=== PATIENT | female | born 1985 | race Caucasian/White ===

== ENCOUNTER → 2020-03-19 08:36 | Outpatient (BNVA) | payer MEDICAID, SELFPAY | PROVIDERS: Family Provider Obstetrics & Gynecology; Visit Provider Obstetrics & Gynecology | DX: Z32.01 Encounter for pregnancy test, result positive (principal) | CPT/HCPCS: 81025 ==

== ENCOUNTER → 2020-03-22 10:35 | Outpatient (BNVA) | payer MEDICAID, SELFPAY | PROVIDERS: Family Provider Obstetrics & Gynecology; Visit Provider Nurse Practitioner Women's Health | DX: O09.32 Supervision of pregnancy with insufficient antenatal care, second trimester (principal); O09.899 Supervision of other high risk pregnancies, unspecified trimester | CPT/HCPCS: 81000 ==

== ENCOUNTER → 2020-04-05 14:54 | Outpatient (BNVA) | payer MEDICAID, SELFPAY | PROVIDERS: Family Provider Obstetrics & Gynecology; Visit Provider Obstetrics & Gynecology | DX: O09.899 Supervision of other high risk pregnancies, unspecified trimester (principal) | CPT/HCPCS: 80053; 80307; 81000; 82950; 85027; 86592; 86762; 86803; 86850; 86900; 87340; 87491; 87591; 87806 ==

== ENCOUNTER → 2020-05-08 14:46 | Outpatient (BNVA) | payer MEDICAID, SELFPAY | PROVIDERS: Family Provider Obstetrics & Gynecology; Visit Provider Obstetrics & Gynecology | DX: O32.1XX0 Maternal care for breech presentation, not applicable or unspecified (principal); Z3A.23 23 weeks gestation of pregnancy | CPT/HCPCS: 76805 ==

== ENCOUNTER → 2020-05-25 09:34 | Outpatient (BNVA) | payer MEDICAID, SELFPAY | PROVIDERS: Family Provider Obstetrics & Gynecology; Visit Provider Obstetrics & Gynecology | DX: Z34.90 Encounter for supervision of normal pregnancy, unspecified, unspecified trimester (principal) | CPT/HCPCS: 81000; 86780 ==

== ENCOUNTER → 2020-07-09 10:47 | Outpatient (BNVA) | payer MEDICAID, SELFPAY | PROVIDERS: Family Provider Obstetrics & Gynecology; Visit Provider Obstetrics & Gynecology | DX: O09.892 Supervision of other high risk pregnancies, second trimester (principal) | CPT/HCPCS: 80053; 81000; 82950; 85027 ==

== ENCOUNTER → 2020-07-16 10:45 | Outpatient (BNVA) | payer MEDICAID, SELFPAY | PROVIDERS: Family Provider Obstetrics & Gynecology; Visit Provider Obstetrics & Gynecology | DX: Z34.90 Encounter for supervision of normal pregnancy, unspecified, unspecified trimester (principal) | CPT/HCPCS: 81000 ==

== ENCOUNTER 2020-07-26 12:00 | Outpatient (CLI) | payer MEDICAID, SELFPAY ==
[2020-07-26 12:00] VITALS: BMI 32.8
[2020-07-26 12:17] VITALS: BP 154/86; PULSE 93
[2020-07-26 12:21] VITALS: RESP 17; TEMP 36.9
[2020-07-26 12:37] VITALS: BP 157/87; PULSE 88
[2020-07-26 12:57] VITALS: BP 149/94; PULSE 88
== END 2020-07-26 13:00 | disposition home or self-care (01) ==
LOC: OPOB 12:11 → OBGYN 12:11
PROVIDERS: Family Provider Obstetrics & Gynecology; Visit Provider Obstetrics & Gynecology
DX: O24.419 Gestational diabetes mellitus in pregnancy, unspecified control (principal); Z3A.00 Weeks of gestation of pregnancy not specified
CPT/HCPCS: 59025; 81000; 99211

== ENCOUNTER 2020-07-30 16:46 | Outpatient (CLI) | payer MEDICAID, SELFPAY ==
[2020-07-30] VITALS (19 sets, daily range): BP systolic 132–167; BP diastolic 76–97; PULSE 70–91; RESP 16–18; TEMP 36.6–36.7; BMI 33.1
[2020-07-30 17:50] LABS: Basophils % 0.4 %; Eosinophils # 0.2 10^3/uL (0.0-0.8); Eosinophils % 2.2 %; Hematocrit 29.1 % (37.0-47.0); Hemoglobin 8.7 g/dL (11.5-15.3); Lymphocytes # 2.6 10^3/uL (0.8-4.8); Lymphocytes % 25.4 %; Mean Corpuscular HGB Conc 29.9 g/dL (30.0-36.0); Mean Corpuscular Hemoglobin 24.2 pg (28.0-34.0); Mean Corpuscular Volume 80.8 fL (81-99); Mean Platelet Volume 12.2 fL (7.4-10.4); Monocytes # 0.5 10^3/uL (0.2-0.9); Neutrophils # 6.87 10^3/uL (1.8-7.7); Neutrophils % 66.7 %; Nucleated Red Blood Cells % 0 %; Platelet Count 323 10^3/cmm (130-400); Red Cell Distribution Width 15.7 % (12.1-15.1); White Blood Count 10.3 10^3/uL (4.0-10.0)
[2020-07-30 17:54] LABS: Add Urine Microscopic? YES; Bilirubin Urine Neg (Negative); Blood Urine 2+ (Negative); Glucose Urine UA 1+ (Normal); Ketones Urine Negative (Negative); Leukocyte Esterase Urine Negative (Negative); Nitrate Urine Negative (Negative); Protein Urine Neg (Negative); Specific Gravity, Urine 1.025 (1.005-1.030); Urine Appearance SL Hazy (CLEAR); Urine Color Yellow (Yellow); Urobilinogen Urine Norm (Negative); pH Urine 6 (5-7)
[2020-07-30 18:16] LABS: Add Urine Culture? Yes; Bacteria Urine TRACE /hpf; Mucus Urine TRACE /hpf; WBC Urine 0-4 /hpf (0-5)
[2020-07-30 18:32] LABS: Urine Creatinine 187 mg/dL (28-217); Urine Protein Random 20 mg/dL
[2020-07-30 18:41] LABS: UPRO/UCREAT Ratio 0.11 mg/mg CR
[2020-07-30 18:42] LABS: Alanine Aminotransferase 10 U/L (0-33); Albumin Level 3.4 g/dL (3.5-5.2); Alkaline Phosphatase 129 IU/L (35-105); Anion Gap 14.7 (5-19); Aspartate Amino Transferase 14 U/L (0-32); Blood Urea Nitrogen 7 mg/dL (6-20); Calcium 8.7 mg/dL (8.5-10.5); Carbon Dioxide 21 mmol/L (22-29); Chloride 103 mmol/L (98-107); Glomerular Filtration Rate 140.4 mL/min (90-130); Glucose 116 mg/dL (65-115); Osmolality Calculated 279 mOsm/kg (285-295); Potassium 3.7 mmol/L (3.5-5.1); Sodium 135 mmol/L (136-145); Total Bilirubin 0.2 mg/dL (0.15-1.2); Total Protein 6.4 g/dL (6.6-8.7); Uric Acid 3.8 mg/dL (2.4-5.7)
--- NOTE | 2020-08-02 18:20 | PM.ACPR ---
NST (Non-Stress Test) NST : 6 Para: 3,023 Due date: 09/16/20 Gestational age (weeks): 33 Indications: Insulin requiring gestational diabetes in third trimester at 33-1/7 weeks gestation. Test: NST Time: 16:56 Length of test in Minutes: 40 Contractions: Irregular Fetus Fetus 1: Baseline FHR BMP:: 130 Variability: Moderate Accelerations: Present Decelerations: Variable (one) Reacticity: Reactive Interpretation/Plan Interpretation by: Saji Miller Comments: Reactive NST with irregular contractions. Time Out Is a Time Out required?: No
== END 2020-07-30 20:56 | disposition home or self-care (01) ==
LOC: OPOB 16:52 → OBGYN 20:34
PROVIDERS: Obstetrics & Gynecology; Family Provider Obstetrics & Gynecology; Visit Provider Obstetrics & Gynecology
DX: O24.419 Gestational diabetes mellitus in pregnancy, unspecified control (principal); Z3A.00 Weeks of gestation of pregnancy not specified
CPT/HCPCS: 12345; 36415; 59025; 80053; 81000; 81001; 82570; 84156; 84550; 85025; 99211

== ENCOUNTER 2020-07-31 18:15 | Outpatient (CLI) | payer MEDICAID, SELFPAY ==
[2020-07-31] VITALS (8 sets, daily range): BP systolic 0–166; BP diastolic 0–104; PULSE 80–87; RESP 16–18; TEMP 36.8–36.9; BMI 33.1
[2020-07-31 18:54] LABS: Basophils % 0.4 %; Eosinophils # 0.2 10^3/uL (0.0-0.8); Eosinophils % 1.9 %; Hemoglobin 8.6 g/dL (11.5-15.3); Lymphocytes # 2.8 10^3/uL (0.8-4.8); Lymphocytes % 25.8 %; Mean Corpuscular HGB Conc 29.7 g/dL (30.0-36.0); Mean Corpuscular Hemoglobin 23.6 pg (28.0-34.0); Mean Corpuscular Volume 79.7 fL (81-99); Mean Platelet Volume 12.1 fL (7.4-10.4); Monocytes # 0.7 10^3/uL (0.2-0.9); Monocytes % 6.4 %; Neutrophils % 65.1 %; Nucleated Red Blood Cells % 0 %; Platelet Count 334 10^3/cmm (130-400); Red Blood Count 3.64 10^6/uL (4.1-5.3); Red Cell Distribution Width 15.7 % (12.1-15.1); White Blood Count 10.9 10^3/uL (4.0-10.0)
--- NOTE | 2020-07-31 18:57 | PC.NURSE ---
PATIENT ARRIVED BY AMBULANCE, HAD IV ALREADY IN LEFT FOREARM, #18. LABS WERE DRAWN OFF IV SITE AT 1845. 10MLS DRAWN OFF SITE PRIOR TO LABS BEING DRAW.
[2020-07-31 19:23] LABS: Alanine Aminotransferase 9 U/L (0-33); Albumin Level 3.5 g/dL (3.5-5.2); Alkaline Phosphatase 132 IU/L (35-105); Anion Gap 12.8 (5-19); Aspartate Amino Transferase 13 U/L (0-32); Blood Urea Nitrogen 6 mg/dL (6-20); Calcium 8.7 mg/dL (8.5-10.5); Carbon Dioxide 20 mmol/L (22-29); Chloride 106 mmol/L (98-107); Glomerular Filtration Rate 140.4 mL/min (90-130); Glucose 93 mg/dL (65-115); Osmolality Calculated 277 mOsm/kg (285-295); Potassium 3.8 mmol/L (3.5-5.1); Sodium 135 mmol/L (136-145); Total Bilirubin 0.3 mg/dL (0.15-1.2); Total Protein 6.5 g/dL (6.6-8.7)
[2020-07-31] MEDS: labetalol 200 mg Tablet 100 MG PO (19:50)
== END 2020-07-31 20:10 | disposition home or self-care (01) ==
LOC: OPOB 18:20 → OBGYN 18:20
PROVIDERS: Family Provider Obstetrics & Gynecology; Visit Provider Obstetrics & Gynecology
DX: O26.899 Other specified pregnancy related conditions, unspecified trimester (principal); Z3A.00 Weeks of gestation of pregnancy not specified; R10.9 Unspecified abdominal pain
CPT/HCPCS: 36415; 59025; 80053; 85025; 99211

== ENCOUNTER → 2020-08-02 12:58 | Outpatient (BNVA) | payer MEDICAID, SELFPAY | PROVIDERS: Family Provider Obstetrics & Gynecology; Visit Provider Obstetrics & Gynecology | DX: Z34.90 Encounter for supervision of normal pregnancy, unspecified, unspecified trimester (principal) | CPT/HCPCS: 81000 ==

== ENCOUNTER → 2020-08-06 11:04 | Outpatient (BNVA) | payer MEDICAID, SELFPAY | PROVIDERS: Family Provider Obstetrics & Gynecology; Visit Provider Obstetrics & Gynecology | DX: Z11.59 Encounter for screening for other viral diseases (principal); Z20.828 Contact with and (suspected) exposure to other viral communicable diseases | CPT/HCPCS: 87635 ==

== ENCOUNTER 2020-08-07 15:45 | Outpatient (CLI) | payer MEDICAID, SELFPAY ==
[2020-08-07 15:45] VITALS: BMI 33.3
[2020-08-07 16:00] VITALS: BP 144/83; PULSE 91; RESP 18; TEMP 37.1
[2020-08-07] MEDS: betamethasone susp 6 mg/mL 5 mL 12 MG IM (16:27)
--- NOTE | 2020-08-07 16:29 | PM.ACPR ---
NST (Non-Stress Test) NST : 6 Para: 3,023 Due date: 09/16/20 Gestational age (weeks): 34 Indications: Insulin controlled gestational diabetes in third trimester Gestational hypertension in third trimester Test: NST Time: 15:59 Length of test in Minutes: 26 Contractions: Occasional Fetus Fetus 1: Baseline FHR BMP:: 130 Variability: Moderate Accelerations: Present Decelerations: None Reacticity: Reactive Interpretation/Plan Interpretation by: Saji Miller Comments: Reactive NST. Also had biophysical profile with a total score of 10 out of 10. Time Out Is a Time Out required?: No
== END 2020-08-07 16:35 | disposition home or self-care (01) ==
LOC: OPOB 15:54 → OBGYN 15:55
PROVIDERS: Family Provider Obstetrics & Gynecology; Visit Provider Obstetrics & Gynecology
DX: O24.414 Gestational diabetes mellitus in pregnancy, insulin controlled (principal); Z3A.34 34 weeks gestation of pregnancy
CPT/HCPCS: 12345; 59025; 81000; 87081; 96372; J0702

== ENCOUNTER 2020-08-08 16:17 | Outpatient (CLI) | payer MEDICAID, SELFPAY ==
[2020-08-08 16:22] VITALS: BMI 34.1
[2020-08-08] MEDS: betamethasone susp 6 mg/mL 5 mL 12 MG IM (16:36)
== END 2020-08-08 16:40 | disposition home or self-care (01) ==
PROVIDERS: Family Provider Obstetrics & Gynecology; Visit Provider Obstetrics & Gynecology
DX: O26.90 Pregnancy related conditions, unspecified, unspecified trimester (principal)
CPT/HCPCS: 96372; J0702

== ENCOUNTER 2020-08-10 17:52 | Inpatient (IN) | payer MEDICAID, SELFPAY ==
[2020-08-10] VITALS (25 sets, daily range): BP systolic 0–176; BP diastolic 0–94; PULSE 80–112; RESP 18–20; TEMP 36.8; BMI 33.4
--- NOTE | 2020-08-10 18:45 | PC.NURSE ---
Bedside ultrasound performed and cephalic presentation verified with Carmella Rodriguez RN
[2020-08-10 18:52] LABS: Basophils # 0.1 10^3/uL (0.0-0.1); Basophils % 0.4 %; Eosinophils # 0.2 10^3/uL (0.0-0.8); Eosinophils % 0.9 %; Hematocrit 31.7 % (37.0-47.0); Hemoglobin 9.3 g/dL (11.5-15.3); Lymphocytes # 3.4 10^3/uL (0.8-4.8); Lymphocytes % 19.1 %; Mean Corpuscular HGB Conc 29.3 g/dL (30.0-36.0); Mean Corpuscular Hemoglobin 24.3 pg (28.0-34.0); Monocytes % 5.5 %; Neutrophils # 12.67 10^3/uL (1.8-7.7); Neutrophils % 71.9 %; Nucleated Red Blood Cells # 0.1 /100WBC; Nucleated Red Blood Cells % 0.4 %; Platelet Count 320 10^3/cmm (130-400); Red Blood Count 3.82 10^6/uL (4.1-5.3); Red Cell Distribution Width 20.9 % (12.1-15.1); White Blood Count 17.6 10^3/uL (4.0-10.0)
[2020-08-10 19:00] LABS: Bilirubin Urine 1+ (Negative); Blood Urine Neg (Negative); Glucose Urine UA Norm (Normal); Ketones Urine 1+ (Negative); Nitrate Urine Negative (Negative); Protein Urine Trace (Negative); Urine Appearance SL Hazy (CLEAR); Urine Color Yellow (Yellow); pH Urine 5 (5-7)
[2020-08-10 19:01] LABS: Add Urine Microscopic? YES; Leukocyte Esterase Urine 2+ (Negative); Urobilinogen Urine Norm (Negative)
[2020-08-10] MEDS: lactated ringers 1,000 ML 999 ML IV (19:04)
[2020-08-10 19:06] LABS: Bacteria Urine 3+ /hpf; RBC Urine 0-4 /hpf (0-2)
[2020-08-10 19:10] LABS: Alanine Aminotransferase 13 U/L (0-33); Albumin Level 3.8 g/dL (3.5-5.2); Alkaline Phosphatase 137 IU/L (35-105); Anion Gap 16.5 (5-19); Aspartate Amino Transferase 21 U/L (0-32); Blood Urea Nitrogen 13 mg/dL (6-20); Calcium 9.1 mg/dL (8.5-10.5); Carbon Dioxide 20 mmol/L (22-29); Chloride 104 mmol/L (98-107); Globulin 2.7 g/dL (1.3-4.6); Glomerular Filtration Rate 181.6 mL/min (90-130); Glucose 82 mg/dL (65-115); Osmolality Calculated 283 mOsm/kg (285-295); Potassium 3.5 mmol/L (3.5-5.1); Sodium 137 mmol/L (136-145); Total Bilirubin 0.3 mg/dL (0.15-1.2); Total Protein 6.5 g/dL (6.6-8.7); Uric Acid 4.5 mg/dL (2.4-5.7)
--- NOTE | 2020-08-10 19:10 | PC.NURSE ---
Dr. Miller at nurses station reviewing strip
[2020-08-10 19:11] LABS: Add Urine Culture? Yes
--- NOTE | 2020-08-10 19:15 | PC.NURSE ---
Dr. Miller at bedside
[2020-08-10 19:27] LABS: Urine Creatinine 144 mg/dL (28-217)
[2020-08-10 19:28] LABS: UPRO/UCREAT Ratio 0.39 mg/mg CR; Urine Protein Random 56 mg/dL
--- NOTE | 2020-08-10 19:30 | PC.NURSE ---
Dr. Miller at bedside
--- NOTE | 2020-08-10 19:38 | PC.NURSE ---
Dr. Miller at bedside
[2020-08-10 19:40] LABS: Glucose Point of Care 84 mg/dL (70-110)
[2020-08-10] MEDS: ketorolac 30 mg/mL INJ IVP (19:59)
--- NOTE | 2020-08-10 20:14 | PM.DELIVERY ---
Delivery Note: Date of delivery: August 10, 2020 Pre-delivery diagnoses: 1. labor at 34-5/7 weeks gestation 2. Severe gestational hypertension in third trimester 3. Insulin controlled gestational diabetes in third trimester 4. macrosomia in third trimester 5. Polyhydramnios in third trimester 6. Anemia in in third trimester 7. Gastroesophageal reflux complicating in third trimester 8. Depression complicating in third trimester 9. Advanced maternal age complicating in third trimester Post-delivery diagnoses: 1. labor with delivery at 34-5/7 weeks gestation 2. -induced hypertension - delivered 3. Insulin controlled gestational diabetes - delivered 4. macrosomia - delivered 5. Polyhydramnios - delivered 6. Anemia in - delivered 7. Gastroesophageal reflux complicating - delivered 8. Depression complicating - delivered 9. Advanced maternal age complicating - delivered 10. Viable male infant. Procedure: Spontaneous vaginal delivery Op report anesthesia: None Delivering Physician: Dr. Saji Miller Estimated blood loss (mL): 100 Pre-Delivery Course: Patient is a 35-year-old white female 6, para 3-0-2-3 with an LMP of 12/11/2019 and an EDC of 09/16/2020 based on LMP and consistent with a 23-week ultrasound, which placed her at 34-5/7 weeks gestation. Patient had been scheduled to be induced this evening for severe gestational hypertension. She was requiring antihypertensive medications for control of her blood pressure. Her had also been complicated by insulin requiring gestational diabetes, large for gestational age fetus, polyhydramnios, advanced maternal age, anemia in , and late entry to care at 14 weeks gestation. She had received betamethasone on 07/07 and 07/08 in anticipation of her early delivery. GBS testing had also been performed and was negative. Patient presented to labor and delivery at 17:52 on 08/10/2020 for induction of labor. On presentation she was found to be vladislav every 2 to 3 minutes on her own. She reported she had been having contractions since earlier in the day, but had waited to come in since she was going to be induced this evening. On arrival she was found to be about 50% effaced and 1 cm dilated. She was admitted to labor and delivery and preeclamptic labs were ordered. Blood sugar was also ordered. She reported having a large gush of fluid at 18:52 and was found to be grossly ruptured with a large amount of fluid present. Cervix was checked and she was 5 cm dilated. She continued to progress rapidly on her own and was found to be completely dilated by 19:39. During the labor course, after the water broke, she was having recurrent variable decelerations. Delivery: She started pushing at 19:41 and delivered at 19:44 as a spontaneous vaginal delivery of an occiput anterior male over an intact perineum under no anesthesia. Following delivery of the 's head, one loop of nuchal cord was noted. However, before the cord could be reduced, the rest of the body rapidly delivered. Cord was clamped and cut and the baby was taken to the warmer where it was left in the care of Dr. Crum and waiting nurses. Cord blood was obtained. Pitocin bolus was started. Placenta delivered intact by simple expression at 19:55. The cervix and vagina were palpated and noted to be intact. The labia were inspected and noted to be intact except for superficial abrasions which required no repair. FINDINGS 1. Viable male weighing 8 lbs 3 oz (3720 g) with a length of 21 inches and Apgars of 5 at 1 minute and 8 at 5 minutes. 2. Three-vessel cord with 1 loop of nuchal cord noted. 3. Normal-appearing placenta with an eccentric cord insertion. Post-Delivery Status: Mother and were left to recover in satisfactory condition. Patient was initially planning to have a sterilization performed. She has now decided to wait until 5 to 6 weeks and have a laparoscopic sterilization. A&P Assessment and plan (1) induced hypertension, delivered, current hospitalization: Status: Acute (2) Gestational diabetes mellitus, delivered, current hospitalization: Status: Acute (3) macrosomia, delivered, current hospitalization: Status: Acute (4) Polyhydramnios, delivered, current hospitalization: Status: Acute (5) Anemia during , delivered, current hospitalization: Status: Acute (6) Mental disorder in , delivered: Status: Acute (7) Advanced maternal age, delivered, current hospitalisation: Status: Acute (8) labor third trimester with delivery third trimester, not applicable or unspecified: Status: Acute Coding Level of Care Code Acute Architectural Administrative Assistant for Sanjivg Fwd Diagnoses labor third trimester with delivery third trimester, not applicable or unspecified O60.14X0 induced hypertension, delivered, current hospitalization O13.4 Gestational diabetes mellitus, delivered, current hospitalization O24.429 macrosomia, delivered, current hospitalization O36.60X0 Polyhydramnios, delivered, current hospitalization O40.9XX0 Anemia during , delivered, current hospitalization O99.02 Mental disorder in , delivered O99.344 Advanced maternal age, delivered, current hospitalisation
[2020-08-10] MEDS: labetalol 200 mg Tablet 100 MG PO (21:02)
[2020-08-10] MEDS: fentaNYL 50 mcg/mL INJ 2mL IVP (21:30)
[2020-08-10] MEDS: miSOPROStol 200 mcg Tablet 800 MCG PR (21:33)
[2020-08-11] VITALS (12 sets, daily range): BP systolic 120–159; BP diastolic 76–102; PULSE 77–156; RESP 16–60; TEMP 36.6–36.8; O2SAT 97–98
--- NOTE | 2020-08-11 01:37 | PC.NURSE ---
At approx. 2029, this nurse notified physician of patients continued moderate bleeding with fundal rubs. Physician ordered to continue monitoring. At approx. 2044, physician was called to bedside to view patients continued moderate bleeding. Physician ordered one dose of TXA. At approx. 2129, physician was called to bedside to view patients heavy bleeding and large clots. Physician proceeded with manual expression and ordered Cytotec 800mcg rectally and Fentanyl 50mcg IVP. After sufficient expression by physician, patient was left in care of nurses for monitoring. Per physician request, pads and chux were weighed and total blood loss was approx. 1300ml. Once bleeding slowed, order received to stop weighing.
[2020-08-11] MEDS: benzocaine-menthol 78 gm Canister 1 SPRAY TOPICAL (02:17)
[2020-08-11] MEDS: TRAMadol 50 mg Tablet PO ×2 (03:49→11:33)
[2020-08-11 06:48] LABS: Hematocrit 24.5 % (37.0-47.0); Hemoglobin 7.3 g/dL (11.5-15.3); Mean Corpuscular HGB Conc 29.8 g/dL (30.0-36.0); Mean Corpuscular Volume 83.9 fL (81-99); Platelet Count 252 10^3/cmm (130-400); Red Blood Count 2.92 10^6/uL (4.1-5.3); White Blood Count 12.2 10^3/uL (4.0-10.0)
[2020-08-11] MEDS: prenatal vitamin Capsule 1 CAP PO (09:12)
[2020-08-11] MEDS: ibuprofen 800 mg tablet PO ×3 (09:12→21:27)
[2020-08-11] MEDS: docusate sodium 100 mg Capsule PO ×2 (09:13→17:27)
--- NOTE | 2020-08-11 16:21 | PM.PN ---
Subjective Subjective: Interval history: Denies problems or concerns. Reports tolerating a regular diet without nausea or vomiting. Denies lightheadedness or dizziness with ambulation. Reports pain is been well controlled. States cramping has significantly decreased. States bleeding has slowed. Denies problems with urination. Vitals/I&O/Wt Last Vital Signs Temp 97.9 F 08/11/20 12:45 Pulse 86 08/11/20 12:45 Resp 16 08/11/20 12:45 BP 149/89 08/11/20 12:45 Pulse Ox 98 08/11/20 12:45 08/11/20 08/11/20 08/11/20 06:59 14:59 22:59 Intake Total 500 / 500 Output Total 300 / 300 900 / 900 Balance -300 / -300 -400 / -400 Weight last 48 hrs Weight 233 lb Physical Exam Const: COMMON NORMALS: no acute distress, average body habitus, alert and well nourished GENERAL APPEARANCE: well developed ORIENTATION/CONSCIOUSNESS: Yes oriented to person, Yes oriented to place and Yes oriented to time GI: COMMON NORMALS: Soft to palpation, non-tender, No hepatosplenomegaly present and no masses (Except for nontender uterus) AUSCULTATION: Yes normoactive bowel sounds PALPATION: Yes Soft to palpation, Yes No hepatosplenomegaly present and No Hernia present : EXTERNAL FEMALE EXAM: No Hernia present Extremity: COMMON NORMALS: no calf tenderness NARRATIVE EXTREMITY EXAM: Trace lower extremity edema bilaterally Neuro: SENSORIUM/ORIENTATION: Yes alert, Yes oriented to person, Yes oriented to place and Yes oriented to time Psych: COMMON NORMALS: normal affect MOOD & AFFECT: Yes euthymic mood Data : 08/11/20 06:35 08/10/20 18:35 A&P Assessment and plan (1) labor third trimester with delivery third trimester, not applicable or unspecified: day 1, less than 24 hours since delivery. Patient reports doing well overall. Baby however is not going to be released as it is currently under the bilirubin lights. Continue present management of the mother. Plan to discharge patient tomorrow. Status: Acute (2) Anemia during , delivered, current hospitalization: Patient was anemic before admission to the hospital. She did have significant bleeding after delivery, having had a hemorrhage from uterine atony. This had responded to manual removal of the clots and use of Cytotec and tranexamic acid. Despite an approximate 2 g drop in her hemoglobin, she reports being asymptomatic. As a result, I would recommend that she continue oral iron at home. Transfusion would not be necessary unless she becomes symptomatic. Status: Acute (3) Mental disorder in , delivered: Patient denies problems at this time. She has been continued on fluoxetine. Status: Acute Attestations Medical Necessity Statement*: Patient is less than 24 hours . Coding Level of Care Code Acute Photoengraving Printer for Chg Fwd Diagnoses labor third trimester with delivery third trimester, not applicable or unspecified O60.14X0 Anemia during , delivered, current hospitalization O99.02 Mental disorder in , delivered O99.344
[2020-08-12 04:15] VITALS: BP 133/77; PULSE 63; RESP 16; TEMP 36.8; O2SAT 98
--- NOTE | 2020-08-12 09:14 | P.DS_ITS ---
Discharge Providers SALES APPOINTMENT COORDINATOR Date of Admission: 08/10/20 17:52 Date of Discharge: 08/12/20 Attending Provider at Admission: Saji Miller MD Attending Provider at Discharge: Saji Miller MD Diagnoses at Discharge Discharge Diagnosis (1) labor third trimester with delivery third trimester, not applicable or unspecified: Status: Acute (2) induced hypertension, delivered, current hospitalization: Status: Acute (3) Anemia during , delivered, current hospitalization: Status: Acute (4) Mental disorder in , delivered: Status: Acute (5) Gestational diabetes mellitus, delivered, current hospitalization: Status: Acute (6) Advanced maternal age, delivered, current hospitalisation: Status: Acute (7) macrosomia, delivered, current hospitalization: Status: Acute (8) Polyhydramnios, delivered, current hospitalization: Status: Acute Reason for Visit Reason for Visit: INDUCTION OF LABOR Hospital Course Hospital Course Patient is a 35-year-old white female 6, para 3-0-2-3 with an LMP of 12/11/2019 and an EDC of 09/16/2020 based on LMP and consistent with a 23-week ultrasound (within 12 days difference), which placed her at 34-5/7 weeks gestation at time of admission. Her had been complicated by severe gestational hypertension, insulin controlled gestational diabetes, anemia in , depression in , and macrosomia with polyhydramnios. At beginning of 33 weeks, she developed elevated blood pressures that were in the severe range. She ruled out for preeclampsia at that time and was started on oral labetalol for blood pressure management. Her blood pressures have been well controlled on the labetalol. However, due to the severe gestational hypertension, recommendations were to go ahead and proceed to delivery during the 34th week of . In anticipation of this, she received betamethasone for lung maturity on 07/07 and 07/08. She was scheduled to come in to be induced on 08/10/2020 in the evening. Patient presented to labor and delivery at her scheduled induction time and day at 17:52 on 08/10/2020, but was found to be vladislav regularly, every 2 to 3 minutes. She was 50% effaced and 1 cm dilated. On admission she was evaluated for possible preeclampsia and this was ruled out based upon laboratory testing including a normal urine protein-creatinine ratio. She did have elevated blood pressures, but none that required IV medication treatment beyond her continued oral labetalol. She had spontaneous rupture of membranes at 18:52 and was 5 cm dilated. She continued to rapidly progress and was completely dilated by 19:39. She started pushing at 19:41 and delivered at 19:44 as a spontaneous vaginal delivery of an occiput anterior male infant over an intact perineum under no anesthesia. The baby weighed 8 lbs 3 oz (3720 g) with a length of 21 inches and Apgars of 5 at 1 minute and 8 at 5 minutes. Patient had superficial abrasions which required no repair. Within an hour after delivery, she was noted to be bleeding heavier than expected. On exam, she was found to have multiple clots within the uterus with a large boggy uterus. This was despite being on postdelivery IV Pitocin. Manual exam was performed which evacuated clots and blood from the uterus. Patient received 800 mcg of Cytotec and tranexamic acid. Following this the bleeding was brought under control. She was estimated to have lost a total of 1300 mL based upon weight of Chux and pads. On day 1, she was reporting doing well. She was denying any lightheadedness or dizziness with ambulation. She was reporting tolerating a regular diet without nausea or vomiting. She reported that her pain was well controlled. She reported bleeding about like a menses. She was denying problems with urination. She was afebrile with elevated, but stable blood pressures. She was continued on the oral labetalol. Activities were increased during the day. Patient's hemoglobin had dropped from approximately 9 down to 7.3. However, she was asymptomatic and it was felt that blood transfusion was not needed. On day 2, she reports continuing to do well. She again denies any lightheadedness or dizziness with ambulation. She reports that her pain is been well controlled. She denies shortness of breath or chest pains. She reports tolerating a regular diet without nausea or vomiting. She denies problems with urination. She states that her bleeding has continued to slow. She is bottlefeeding. Physical Exam: See below Plan Discharge to home (baby is not being released at this time and patient will be rooming in with the baby). Patient instructed to continue with her labetalol. Patient was also instructed to continue with the fluoxetine and iron. Patient to check her blood pressures twice a day and to bring with her to her next appointment. She is to follow-up in the office in approximately 1 week for blood pressure check. Patient had also desired sterilization. This will be scheduled at approximately 5 to 6 weeks with plan for laparoscopic sterilization. Information Peripartum Data: Delivery Method: Vaginal Physical Exam Const: COMMON NORMALS: no acute distress, average body habitus, alert and well nourished GENERAL APPEARANCE: well developed ORIENTATION/CONSCIOUSNESS: Yes oriented to person, Yes oriented to place and Yes oriented to time Resp: COMMON NORMALS: normal respiratory effort and clear to auscultation bilaterally AUSCULTATION: clear to auscultation bilaterally Cardio: COMMON NORMALS: regular rate, regular rhythm, No gallops present (Cardio) and No rub (Cardio) RATE: regular rate RHYTHM: regular rhythm GI: COMMON NORMALS: Soft to palpation, non-tender, No hepatosplenomegaly present and no masses (Except for nontender uterus) AUSCULTATION: Yes normoactive bowel sounds PALPATION: Yes Soft to palpation, Yes No hepatosplenomegaly present and No Hernia present : EXTERNAL FEMALE EXAM: No Hernia present Extremity: COMMON NORMALS: no calf tenderness NARRATIVE EXTREMITY EXAM: Trace lower extremity edema bilaterally Neuro: SENSORIUM/ORIENTATION: Yes alert, Yes oriented to person, Yes oriented to place and Yes oriented to time Psych: COMMON NORMALS: normal affect MOOD & AFFECT: Yes euthymic mood Discharge Data Vitals: Last Vital Signs Temp 98.3 F 08/12/20 04:15 Pulse 63 08/12/20 04:15 Resp 16 08/12/20 04:15 BP 133/77 08/12/20 04:15 Pulse Ox 98 08/12/20 04:15 Discharge Plan Discharge Patient Disposition: Home Condition: Stable Prescriptions: Continued Gummies 400 mcg-35 mg- 25 mg-5 mg tablet,chewable 1 tab PO DAILY RF: 0 (DME) blood-glucose meter [Blood Glucose Monitoring] Kit See Rx Instructions .ROUTE .MEDSUPPLY Qty: 1 RF: 0 (DME) lancets [Fingerstix Lancets] Misc See Rx Instructions .ROUTE .MEDSUPPLY Qty: 200 RF: 12 (DME) Easy Talk Glucose Test Strip See Rx Instructions .ROUTE .MEDSUPPLY Qty: 200 RF: 12 fluoxetine 20 mg tablet 20 mg PO DAILY RF: 0 (DME) insulin syringe,safetyneedle 0.3 mL 29 x 1/2 syringe See Rx Instructions .ROUTE .MEDSUPPLY Qty: 100 RF: 2 ferrous sulfate 325 mg (65 mg iron) tablet 325 mg PO BID Qty: 60 RF: 6 labetalol 100 mg tablet 100 mg PO BID Qty: 60 RF: 2 Discontinued famotidine 20 mg tablet 20 mg PO BID 30 Days Qty: 60 RF: 5 Levemir U-100 Insulin 100 unit/mL solution 20 unit SUBCUT DAILY Qty: 10 RF: 0 Discharge Orders: Discharge Order (Routine); Ordered 08/12/20 Ordered By: Saji Miller Referrals: Saji Miller MD [Family Provider] - 6 Weeks (CALL THURSDAY MORNING AND MAKE APPOINTMENTS FOR 1-2 WEEK FOR BLOOD PRESSURE CHECK AND 6 WEEKS FOR CHECK ) Discharge Diet: Regular Discharge Activity: Resume usual activity Patient Instructions: OB Discharge Report, OB Food/Drug Interaction Guide, OB Proud Parent Packet, OB Vaginal Deliveries - [facility] Activity Restrictions/Additional Instructions: *May use [id number] ibuprofen 200 mg, 3 tablets four times a day or 4 tablets three times a day, as needed for pain. *Check blood pressure at home and bring to office at follow-up visit. Discharge Attestations SALES APPOINTMENT COORDINATOR Time Spent in Discharge Care*: less than 30 min Coding Level of Care Code Acute Toolroom Keeper for Chg Fwd Diagnoses labor third trimester with delivery third trimester, not applicable or unspecified O60.14X0 induced hypertension, delivered, current hospitalization O13.4 Anemia during , delivered, current hospitalization O99.02 Mental disorder in , delivered O99.344 Gestational diabetes mellitus, delivered, current hospitalization O24.429 Advanced maternal age, delivered, current hospitalisation macrosomia, delivered, current hospitalization O36.60X0 Polyhydramnios, delivered, current hospitalization O40.9XX0
[2020-08-12 11:30] VITALS: BP 149/92; PULSE 83; RESP 18; TEMP 36.9
[2020-08-12 11:36] VITALS: BP 149/92; PULSE 83; RESP 18; TEMP 36.9
--- NOTE | 2020-08-12 11:42 | PC.NURSE ---
PT REFUSED TO REVIEW HOME CARE INSTRUCTIONS. PT REFUSED ASSESSMENT, DISCHARGE ASSESSMENT, REFUSED TO INITIAL OR CHECK OVER CERTIFICATE. PT VOICES IT BEING THIS NURSE'S FAULT DAD'S NAME IS NOT ON THE CERTIFICATE. THIS NURSE STATED IT ISN'T ME PERSONALLY, IT IS THE STATE LAW. PT STATES I DON'T WANT TO TALK ABOUT IT ANYMORE PT REFUSED TO LET THIS NURSE GO OVER DISCHARGE INSTRUCTIONS'S PT STATES I CAN READ PT SIGNED FOR VERIFICATION OF RECEIVING HOME CARE INSTRUCTIONS.
--- NOTE | 2020-08-12 13:09 | PC.NURSE ---
0830 CERTIFICATE WORKSHEET FILLED OUT BY PATIENT, ERIK KEITH. [facility] PUT INFORMATION IN TO [place] [employer] AND THEN PRINTED FOR PATIENT'S REVIEW. ERIK KEITH REPORTED SHE IS , BUT NOT TO THE FATHER OF THE BABY AND WOULD LIKE THE FATHER OF THE BABY ON THE CERTIFICATE. ERIK'S AND HER LEGAL HAVE NO CONTACT AND SHE WAS NOT WILLING TO CONTACT HIM TO SIGN DENIAL OF PATERNITY. BREN INFORMED PATIENT THAT WE WOULD NOT BE ABLE TO PUT FOB ON CERTIFICATE WITHOUT SIGNING DENIAL OF PATERNITY. ERIK THEN BECAME VERY AGITATED AND STATED THAT SHE WOULD LIKE A DIFFERENT FORM AND WOULD JUST NOT CHECK THAT SHE WAS LEGALLY ON NEW FORM SO FOB COULD BE ON THE CERTIFICATE. THIS NURSE WENT IN ROOM THE PATIENT WAS YELLING AND COULD BE HEARD FROM THE NURSES' STATION. THIS NURSE TRIED TO CALMLY TALK TO PT AND BE UNDERSTANDING, BUT PT JUST KEPT YELLING I WILL FILL OUT A NEW FORM AND HE WILL BE ON THE CERTIFICATE . PT THROWING THINGS IN THE ROOM. PT MOM KEEPS APOLOGIZING FOR HOW DAUGHTER (PT) IS ACTING. PT'S MOM REQUESTED TO SPEAK TO THIS NURSE IN THE [place]. PT MOM REQUESTS A NEW FORM TO LET [facility] FILL OUT AND PRETEND THE OTHER ONE IS LOST OR SOMETHING AND IT COULD JUST BE BETWEEN [facility] AND GOD.
== END 2020-08-12 11:35 | disposition home or self-care (01) | DRG 807 ==
PROVIDERS: Admitting Provider Obstetrics & Gynecology; Family Provider Obstetrics & Gynecology; Visit Provider Obstetrics & Gynecology
DX: O13.4 Gestational [pregnancy-induced] hypertension without significant proteinuria, complicating childbirth (principal); Z37.0 Single live birth; Z3A.34 34 weeks gestation of pregnancy; O40.3XX0 Polyhydramnios, third trimester, not applicable or unspecified; O99.02 Anemia complicating childbirth; D64.9 Anemia, unspecified; O99.344 Other mental disorders complicating childbirth; O60.14X0 Preterm labor third trimester with preterm delivery third trimester, not applicable or unspecified; F32.9 Major depressive disorder, single episode, unspecified; O24.424 Gestational diabetes mellitus in childbirth, insulin controlled; O36.63X0 Maternal care for excessive fetal growth, third trimester, not applicable or unspecified; K21.9 Gastro-esophageal reflux disease without esophagitis; O99.284 Endocrine, nutritional and metabolic diseases complicating childbirth; O69.81X0 Labor and delivery complicated by cord around neck, without compression, not applicable or unspecified; O72.2 Delayed and secondary postpartum hemorrhage
CPT/HCPCS: 12345; 36415; 36416; 59025; 59409; 80053; 81001; 82570; 82962; 84156; 84550; 85025; 85027; 96375; J1885; J3010